=== PATIENT | female | born 1995 | race African-American/Black ===

== ENCOUNTER 2018-03-01 16:17 | Emergency (ER) | payer OTHER ==
[2018-03-01] MEDS ORDERED: Ondansetron ODT TAB* 4 MG SL ONE (17:43)
[2018-03-01 18:06] LABS: ABS Basophils 0.1 10^3/ul (0-0.2); ABS Eosinophils 0.1 10^3/ul (0-0.6); ABS Lymphocytes 1.8 10^3/ul (1.0-4.8); ABS Monocytes 0.4 10^3/ul (0-0.8); ABS Neutrophils 3.1 10^3/ul (1.5-7.7); ABS Nucleated RBC 0 10^3/ul; Eosinophil % 2.2 %; Hematocrit 42 % (35-47); Hemoglobin 13.9 g/dl (12.0-16.0); Lymphocyte % 32.5 %; Mean Corpuscular HGB Conc 33 g/dl (31-36); Mean Corpuscular Hemoglobin 30 pg (27-31); Mean Corpuscular Volume 90 fL (80-97); Mean Platelet Volume 8.5 fL (7.4-10.4); Nucleated Red Blood Cells % 0.1; Platelet Count 248 10^3/ul (150-450); Red Blood Count 4.65 10^6/ul (4.00-5.40); Red Cell Distribution Width 13 % (10.5-15); White Blood Count 5.5 10^3/ul (3.5-10.8)
[2018-03-01 18:13] LABS: Urine Appearance Clear; Urine Blood Negative (Negative); Urine Color Yellow; Urine Ketones Negative (Negative); Urine Protein Negative (Negative); Urine Specific Gravity 1.019 (1.010-1.030); Urine Urobilinogen Negative (Negative)
[2018-03-01 18:15] LABS: INR 1.04 (0.77-1.02)
--- NOTE | 2018-03-01 18:21 | ED ---
Complex/Multi-Sys Presentation - HPI Summary HPI Summary: A 22 y/o female presents to the ED c/o "weird mix of symptoms" reaching 3/10 in severity since Saturday. As per triage, "intermittent rapid HR with tachypnea, states she gets full quickly and feels nauseous after, irregular sleep pattern, intermittent tingling in face, SOB with activity. symptoms started saturday and worsened overnight. history of depression". According to the patient, she feels like her heart is racing when she is doing common, non-exertive, activities. She feels like she felt like she just ran a marathon when she was just writing. Additionally, yesterday evening, she felt pain from her chin all the way to her eyes. Furthermore, she has nausea and appetite changes. She eats 1 meal per day, but gets so full and wants to vomit. She denies any fevers, CP, abdominal pain or chills. PMHx of depression, no anxiety, IBS or panic attacks. LKMP was February 02 or 2017. Patient is not sexually active, no change of . - History Of Current Complaint Chief Complaint: EDGeneral Time Seen by Provider: 03/01/18 17:05 Hx Obtained From: Patient Onset/Duration: Lasting Days, Still Present Timing: Constant Severity Currently: None Location: Negative Aggravating Factor(s): NOTHING Alleviating Factor(s): NOTHING Associated Signs And Symptoms: Positive: Palpitations, Nausea. Negative: Abdominal Pain, Fever - Allergies/Home Medications Allergies/Adverse Reactions: Allergies Allergy/AdvReac Type Severity Reaction Status Date / Time No Known Allergies Allergy Verified 03/01/18 16:25 PMH/Surg Hx/FS Hx/Imm Hx Endocrine/Hematology History: Denies: Hx Diabetes Cardiovascular History: Denies: Hx Hypertension - Surgical History Surgery Procedure, Year, and Place: No prior surgeries noted. Infectious Disease History: No Infectious Disease History: Denies: Traveled Outside the [place] in Last 30 Days - Family History Known Family History: Negative: Hypertension, Diabetes - Social History Alcohol Use: None Substance Use Type: Reports: None Smoking Status (MU): Never Smoked Tobacco Review of Systems Negative: Fever, Chills Positive: Palpitations - POSITIVE: TACHYCARDIA, Other. Negative: Chest Pain Positive: Shortness Of Breath Positive: Nausea, Other - POSITIVE: APPETITE CHANGES. Negative: Abdominal Pain Positive: Other - POSITIVE: FACIAL PAIN All Other Systems Reviewed And Are Negative: Yes Physical Exam - Summary Physical Exam Summary: GENERAL: Patient is a well-developed and nourished female who is lying comfortable in the stretcher. Patient is not in any acute respiratory distress. HEAD AND FACE: Normocephalic EYES: PERRLA, EOMI x 2. EARS: Hearing grossly intact. MOUTH: Oropharynx within normal limits. NECK: Supple, trachea is midline, no adenopathy, no JVD, no carotid bruit. CHEST: Symmetric, no tenderness at palpation LUNGS: Clear to auscultation bilaterally. No wheezing or crackles. CVS: Regular rate and rhythm, S1 and S2 present, no murmurs or gallops appreciated. ABDOMEN: Soft, non-tender. Bowel sounds are normal. No abdominal abnormal pulsations. EXTREMITIES: Full ROM in all major joints, no edema, no cyanosis or clubbing. NEURO: Alert and oriented x 3. No acute neurological deficits. Speech is normal and follows commands. SKIN: Dry and warm Triage Information Reviewed: Yes Vital Signs On Initial Exam: Initial Vitals Temp Pulse Resp BP Pulse Ox 97.8 F 67 16 113/83 100 03/01/18 16:21 03/01/18 16:21 03/01/18 16:21 03/01/18 16:21 03/01/18 16:21 Vital Signs Reviewed: Yes Diagnostics - Vital Signs Vital Signs Temp Pulse Resp BP Pulse Ox 03/01/18 16:21 97.8 F 67 16 113/83 100 - Laboratory Lab Results: Lab Results 03/01/18 03/01/18 03/01/18 Range/Units 17:57 17:59 17:59 WBC 5.5 (3.5-10.8) 10^3/ul RBC 4.65 (4.00-5.40) 10^6/ul Hgb 13.9 (12.0-16.0) g/dl Hct 42 (35-47) % MCV 90 (80-97) fL MCH 30 (27-31) pg MCHC 33 (31-36) g/dl RDW 13 (10.5-15) % Plt Count 248 (150-450) 10^3/ul MPV 8.5 (7.4-10.4) fL Neut % (Auto) 57.2 % Lymph % (Auto) 32.5 % [place] % (Auto) 6.4 % Eos % (Auto) 2.2 % Baso % (Auto) 1.7 % Absolute Neuts (auto) 3.1 (1.5-7.7) 10^3/ul Absolute Lymphs (auto) 1.8 (1.0-4.8) 10^3/ul Absolute Monos (auto) 0.4 (0-0.8) 10^3/ul Absolute Eos (auto) 0.1 (0-0.6) 10^3/ul Absolute Basos (auto) 0.1 (0-0.2) 10^3/ul Absolute Nucleated RBC 0 10^3/ul Nucleated RBC % 0.1 INR (Anticoag Therapy) 1.04 H (0.77-1.02) APTT 31.8 (26.0-36.3) seconds D-Dimer, Quantitative < 200 (Less Than 230) ng/mL Urine Color Yellow Urine Appearance Clear Urine pH 5.0 (5-9) Ur Specific [place] 1.019 (1.010-1.030) Urine Protein Negative (Negative) Urine Ketones Negative (Negative) Urine Blood Negative (Negative) Urine Nitrate Negative (Negative) Urine Bilirubin Negative (Negative) Urine Urobilinogen Negative (Negative) Ur Leukocyte Esterase Negative (Negative) Urine Glucose Negative (Negative) Result Diagrams: 03/01/18 17:59 03/01/18 17:59 Lab Statement: Any lab studies that have been ordered have been reviewed, and results considered in the medical decision making process. - Radiology CXR Radiology Interpretation Completed By: Radiologist - No radiographic evidence of acute cardiopulmonary disease. ED physician reviewed this radiology report. - EKG 1730 Cardiac Rate: NL - 69 BPM EKG Rhythm: Sinus Rhythm - 69 BPM Summary of EKG Findings: normal intervals. Complex Multi-Symp Course/Dx Course Of Treatment: A 22 y/o female presents to the ED c/o "weird mix of symptoms" reaching 3/10 in severity since Saturday. As per triage, "intermittent rapid HR with tachypnea, states she gets full quickly and feels nauseous after, irregular sleep pattern, intermittent tingling in face, SOB with activity. symptoms started saturday and worsened overnight. history of depression". According to the patient, she feels like her heart is racing when she is doing common, non-exertive, activities. She feels like she felt like she just ran a marathon when she was just writing. Additionally, yesterday evening, she felt pain from her chin all the way to her eyes. Furthermore, she has nausea and appetite changes. She eats 1 meal per day, but gets so full and wants to vomit. She denies any fevers, CP, abdominal pain or chills. Physical examination findings were unremarkable. A CXR revealed no radiographic evidence of acute cardiopulmonary disease. An EKG revealed NSR of 69 BPM, normal intervals. Hematology and urinalysis were done. Labs were all within normal limits. In the ED course, the patient received Zofran. Patient will be discharged with a diagnosis of palpitations. Patient will be sent home with prescription for Zofran and is to take medication as prescribed. Patient is to follow up with primary care physician in 1-3 days. Patient is to return to ED for any new or worsening symptoms. Patient is agreeable with this plan. - Diagnoses Provider Diagnoses: Palpitations Discharge - Sign-Out/Discharge Documenting (check all that apply): Patient Departure - DISCHARGE - Discharge Plan Condition: Stable Disposition: HOME Prescriptions: Ondansetron HCl [Zofran] 4 mg PO TID #12 tablet Patient Education Materials: Heart Palpitations (ED) Referrals: [facility] - J Carlos ZAMARRIPA [Primary Care Provider] - 3 Days Additional Instructions: FOLLOW UP WITH PRIMARY CARE PROVIDER IN 1-3 DAYS. TAKE MEDICATION PRESCRIBED. RETURN TO ED FOR ANY NEW OR WORSENING SYMPTOMS. - Billing Disposition and Condition Condition: STABLE Disposition: Home - Attestation Statements Document Initiated by Nighat: Yes Documenting Scribe: Juvenal Tavares Provider For Whom Nighat is Documenting (Include Credential): Shelby Hudson MD Scribe Attestation: Juvenal Thompson scribed for Shelby Hudson MD on 03/02/18 at 0754. Scribe Documentation Reviewed: Yes Provider Attestation: The documentation as recorded by the Juvenal dubose accurately reflects the service I personally performed and the decisions made by me, Shelby Hudson MD Status of Scribe Document: Viewed
[2018-03-01 19:16] VITALS: BP 117/72
== END 2018-03-01 19:15 | disposition home or self-care (01) ==
LOC: ED 16:17
DX: R00.2 Palpitations (principal)
CPT/HCPCS: 36415; 71046; 80053; 81003; 83605; 83735; 83880; 84443; 84484; 84702; 85025; 85379; 85610; 85730; 93005; 99282; A9270-GY